=== PATIENT | male | born 1985 | race African-American/Black ===

== ENCOUNTER 2022-06-14 13:24 | Inpatient (IN) ==
[2022-06-14] MEDS ORDERED: ONDANSETRON INJ 2 MG/ML 2 ML VIAL IV STA (13:44)
[2022-06-14] MEDS ORDERED: SODIUM CHLORIDE 0.9% 1000ML 2,000 ML IV SCH (13:45)
--- NOTE | 2022-06-14 13:50 | Emergency Department Note ---
History of Present Illness General Chief complaint: Illness Stated complaint: NI/OUT, DEHYDRATED, Time Seen by Provider: 06/14/22 13:35 History of Present Illness 37-year-old male presents to the ED with a chief complaint of altered mental status. The patient was brought in by a friend. 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 The patient has been lethargic for the past week, just laying around. He is normally talkative and active. No known past medical history. Does not see a doctor regularly. The patient does report some recent vomiting and possibly diarrhea. He is a difficult historian as he is altered and only responds to basic questions with simple answers. The friend reports that he takes no chronic medications. Home Medications Medication Instructions Recorded Confirmed Type No Known Home Medications 06/14/22 06/14/22 History Allergies Allergy/AdvReac Type Severity Reaction Status Date / Time No Known Allergies Allergy Unverified 02/20/15 13:20 Past Med/Surg History Medical History (Updated 06/14/22 @ 15:18 by Mindy Coleman PA-C) Medical history unknown Surgical History (Updated 06/14/22 @ 15:19 by Mindy Coleman PA-C) Surgical history unknown Family History Other Family history unobtainable due to patient's condition Social History Smoking Status: Unknown if ever smoked Preferred Language: Cymraes Review of Systems A total of 10 systems reviewed and were otherwise negative Physical Exam Vital Signs Vital Signs - 24 hr 06/14/22 13:26 06/14/22 13:53 06/14/22 14:06 Temperature 36.5 C Temperature Source Temporal Artery Scan Pulse Rate 123 H 120 H Pulse Rate [Radial] 120 H Pulse Rate from SpO2 Sensor Pulse Rhythm Regular Pulse Rhythm [Radial] Regular Respiratory Rate 20 28 H 20 Respiratory Effort / Characteristics Non-Labored Spontaneous Non-Labored Respiratory Depth Normal Normal Respiratory Pattern Regular Blood Pressure 133/91 Blood Pressure Mean 105 Blood Pressure Position Sitting Pulse Oximetry 99 98 98 Oxygen Delivery Method Room Air Room Air Room Air Sepsis Recent Fever Within 48 Hours No Sepsis New/Unexplained Change in Mental Status No Sepsis Action Taken by Nursing No Action Required 06/14/22 13:38 06/14/22 13:40 06/14/22 13:50 Temperature Temperature Source Pulse Rate 119 H 120 H 120 H Pulse Rate [Radial] Pulse Rate from SpO2 Sensor Pulse Rhythm Pulse Rhythm [Radial] Respiratory Rate 21 15 16 Respiratory Effort / Characteristics Respiratory Depth Respiratory Pattern Blood Pressure Blood Pressure Mean Blood Pressure Position Pulse Oximetry Oxygen Delivery Method Sepsis Recent Fever Within 48 Hours Sepsis New/Unexplained Change in Mental Status Sepsis Action Taken by Nursing 06/14/22 14:00 06/14/22 14:10 06/14/22 14:20 Temperature Temperature Source Pulse Rate 123 H 121 H 122 H Pulse Rate [Radial] Pulse Rate from SpO2 Sensor Pulse Rhythm Pulse Rhythm [Radial] Respiratory Rate 24 22 19 Respiratory Effort / Characteristics Respiratory Depth Respiratory Pattern Blood Pressure Blood Pressure Mean Blood Pressure Position Pulse Oximetry Oxygen Delivery Method Sepsis Recent Fever Within 48 Hours Sepsis New/Unexplained Change in Mental Status Sepsis Action Taken by Nursing 06/14/22 14:26 06/14/22 14:26 06/14/22 14:30 Temperature Temperature Source Pulse Rate 124 H 124 H Pulse Rate [Radial] Pulse Rate from SpO2 Sensor 121 H Pulse Rhythm Pulse Rhythm [Radial] Respiratory Rate 23 18 Respiratory Effort / Characteristics Respiratory Depth Respiratory Pattern Blood Pressure 166/104 H Blood Pressure Mean 124 Blood Pressure Position Pulse Oximetry 90 Oxygen Delivery Method Sepsis Recent Fever Within 48 Hours Sepsis New/Unexplained Change in Mental Status Sepsis Action Taken by Nursing 06/14/22 14:40 06/14/22 14:50 06/14/22 15:00 Temperature Temperature Source Pulse Rate 123 H 123 H 121 H Pulse Rate [Radial] Pulse Rate from SpO2 Sensor 123 H 123 H 124 H Pulse Rhythm Pulse Rhythm [Radial] Respiratory Rate 15 15 17 Respiratory Effort / Characteristics Respiratory Depth Respiratory Pattern Blood Pressure Blood Pressure Mean Blood Pressure Position Pulse Oximetry 98 99 95 Oxygen Delivery Method Sepsis Recent Fever Within 48 Hours Sepsis New/Unexplained Change in Mental Status Sepsis Action Taken by Nursing 06/14/22 15:01 06/14/22 15:01 06/14/22 15:09 Temperature 36.8 C Temperature Source Axillary Pulse Rate 122 H Pulse Rate [Radial] Pulse Rate from SpO2 Sensor Pulse Rhythm Pulse Rhythm [Radial] Respiratory Rate 20 Respiratory Effort / Characteristics Respiratory Depth Respiratory Pattern Blood Pressure 130/104 H Blood Pressure Mean 112 Blood Pressure Position Pulse Oximetry Oxygen Delivery Method Sepsis Recent Fever Within 48 Hours Sepsis New/Unexplained Change in Mental Status Sepsis Action Taken by Nursing CONSTITUTIONAL/VITAL SIGNS: Reviewed / noted above. GENERAL: Patient is lethargic. Responds appropriately to basic questions but only with basic answers. Smell of ketones about the patient. INTEGUMENTARY: Warm, dry, and [place]. HEAD: Normocephalic. EYES: without scleral icterus or trauma. ENT/OROPHARYNX: clear and moist. LYMPHADENOPATHY/NECK: Is supple without lymphadenopathy or meningismus. RESPIRATORY: Clear to auscultation bilaterally. No increased work of breathing. CARDIOVASCULAR: Tachycardic rate and regular rhythm. GI/ABDOMEN: Soft and nontender. No organomegaly or pulsatile mass. EXTREMITIES: Warm and well perfused. NEUROLOGICAL: The patient is lethargic but answers basic questions appropriately with basic answers. No obvious focal deficits. Follows basic commands and moves all 4 extremities. MUSCULOSKELETAL: Normally developed with good muscle tone. TRIAGE NURSING DOCUMENTATION REVIEWED. Procedures ABG Interpretation ABG Interpretation 1: ABG Results: 7.2 Interpretation: metabolic acidosis Course Administered Medications Sodium Chloride (Nss 1000ml) 2,000 mls @ 999 mls/hr IV .Q2H1M EDWIN Stop: 06/14/22 15:45 Last Admin: 06/14/22 14:04 Dose: 999 mls/hr Documented By: EMY Parenteral Electrolytes (Normosol-R) 1,000 mls @ 500 mls/hr IV .Q2H EDWIN Stop: 07/14/22 14:14 Last Admin: 06/14/22 15:00 Dose: 500 mls/hr Documented By: EMY Insulin Human Regular 250 (units/ Sodium Chloride) 250 mls @ 10 mls/hr IV .Q24H [facility]; Protocol Stop: 07/14/22 14:14 Last Admin: 06/14/22 14:31 Dose: 10 units/hr, 10 mls/hr Documented By: EMY Co-signed By: PIERCE Discontinued Medications Insulin Human Regular (Novolin-R Bolus From Bag) 10 units IV ONE ONE Stop: 06/14/22 14:16 Last Admin: 06/14/22 14:31 Dose: 10 units Documented By: EMY Co-signed By: PIERCE Miscellaneous (Hhs Goal Range 250-350 Mg/Dl) 1 each N/A ONE ONE Stop: 06/14/22 13:57 Last Admin: 06/14/22 15:06 Dose: Not Given Documented By: CAROLYN Ondansetron HCl (Ondansetron Inj 2 Mg/Ml 2 Ml Vial) 4 mg IV NOW STA Stop: 06/14/22 13:45 Last Admin: 06/14/22 14:04 Dose: 4 mg Documented By: EMY Critical Care Time Critical Care Time: Yes Total Critical Care Time: 30 I have personally spent 30 minutes of critical care time in the direct management of this patient. This includes bedside care, interpretation of diagnostic studies, and testing, discussion with consultants, patient, and family members, and other required patient management activities. This 30 minutes is in excess of all separately billable procedures. Medical Decision Making Differential Diagnosis Differential includes acute coronary syndrome, myocardial infarction, CVA, TIA, anemia, infection, pneumonia, UTI, pyelonephritis, poor nutrition, dehydration, electrolyte disturbance,hypoglycemia, DKA, hyperglycemia. Medical Records Attestation: I reviewed the patient's medical records. Home Medications Current Medication List: was personally reviewed by me Laboratory Data Attestation: I reviewed the patient's lab results. Result diagrams: 06/14/22 13:48 06/14/22 13:48 Lab Results 06/14/22 06/14/22 06/14/22 Range/Units 13:38 13:48 13:48 WBC 12.73 H (4.8-10.8) K/ul RBC 6.99 H (4.63-6.08) M/uL Hgb 15.6 (14.0-18.0) g/dl POC Hgb (14.0-18.0) g/dl Hct 51.8 H (40.1-51.0) % POC Hct (42-52) % MCV 74.1 L (80.0-100.0) fL MCH 22.3 L (25.0-34.0) pg MCHC 30.1 L (32.0-36.0) g/dL RDW Std Deviation 35.6 L (36.4-46.3) fL RDW Coeff of Angelo 15.2 H (11.5-14.5) % Plt Count 470 H (130-400) K/uL MPV 12.5 H (9.4-12.4) fL Immature Gran % (Auto) 0.6 % Neut % (Auto) 79.1 % Lymph % (Auto) 8.8 % [facility] % (Auto) 11.0 % Eos % (Auto) 0.0 % Baso % (Auto) 0.5 % Neut # (Auto) 10.07 H (1.4-6.5) K/uL Lymph # (Auto) 1.12 L (1.2-3.4) K/uL [facility] # (Auto) 1.40 H (0.24-0.82) K/uL Eos # (Auto) 0.00 (0-0.50) K/uL Baso # (Auto) 0.06 (0-0.2) K/uL Immature Gran # (Auto) 0.08 H (0.00-0.02) K/uL ABG pH (7.35-7.45) ABG pCO2 (35-46) mmHg ABG pO2 (80-95) mmHg ABG HCO3 (19-24) mmol/L ABG O2 Saturation (90-95) % ABG Base Excess (-9-1.8) mEq/L Edvin Test (Pos) VBG pH (7.36-7.41) VBG pCO2 (38-50) mmHg VBG pO2 mmHg VBG HCO3 mmol/L VBG O2 Saturation % VBG Base Excess mEq/L Oxygen Given POC Sodium (135-144) mmol/L Sodium 137 (136-145) mmol/L POC Potassium (3.3-5.0) mmol/L Potassium 6.7 H* (3.5-5.1) mmol/L POC Chloride (101-112) mmol/L Chloride 90 L (98-107) mmol/L Carbon Dioxide 13 L (21-32) mmol/L POC Total CO2 (24-31) mmol/L Anion Gap 34 H (3-11) POC Anion Gap (16-25) mmol/L POC BUN (7-18) mg/dl BUN 48 H (6-23) mg/dl Creatinine 2.92 H (0.6-1.4) mg/dl POC Creatinine (0.6-1.3) mg/dl Est Cr Clr Drug Dosing 53.9 ml/min Est GFR ( Amer) 30.8 ml/min Est GFR (Non-Af Amer) 26.6 ml/min BUN/Creatinine Ratio 16.4 (10-20) Glucose 883 H* (70-99(Fasting)) mg/dl POC Glucose > 600 H* (70-99) mg/dl POC Glucose (other) (70-99) mg/dl Lactate (0.4-2.0) mmol/L Calcium 10.5 H (8.5-10.1) mg/dl POC Ioniz Calcium Linda (1.12-1.32) mmol/l Phosphorus (2.5-4.9) mg/dl Magnesium 3.4 H (1.7-2.4) mg/dl Total Bilirubin 0.5 (0.2-1.0) mg/dl AST 9 L (13-39) U/L ALT 18 (7-52) U/L Alkaline Phosphatase 76 (34-104) U/L Total Creatine Kinase 81 (30-223) U/L Troponin I High Sens 14.9 (0-20) pg/ml Total Protein 8.9 H (6.0-8.3) gm/dl Albumin 4.5 (3.4-5.0) gm/dl Globulin 4.4 H (2.5-4.0) gm/dl Albumin/Globulin Ratio 1.0 (0.9-2) TSH (0.300-4.500) uIu/ml SARS-CoV-2, RNA, NAAT (NEGATIVE) 06/14/22 06/14/22 06/14/22 Range/Units 13:48 13:48 13:48 WBC (4.8-10.8) K/ul RBC (4.63-6.08) M/uL Hgb (14.0-18.0) g/dl POC Hgb (14.0-18.0) g/dl Hct (40.1-51.0) % POC Hct (42-52) % MCV (80.0-100.0) fL MCH (25.0-34.0) pg MCHC (32.0-36.0) g/dL RDW Std Deviation (36.4-46.3) fL RDW Coeff of Angelo (11.5-14.5) % Plt Count (130-400) K/uL MPV (9.4-12.4) fL Immature Gran % (Auto) % Neut % (Auto) % Lymph % (Auto) % [facility] % (Auto) % Eos % (Auto) % Baso % (Auto) % Neut # (Auto) (1.4-6.5) K/uL Lymph # (Auto) (1.2-3.4) K/uL [facility] # (Auto) (0.24-0.82) K/uL Eos # (Auto) (0-0.50) K/uL Baso # (Auto) (0-0.2) K/uL Immature Gran # (Auto) (0.00-0.02) K/uL ABG pH (7.35-7.45) ABG pCO2 (35-46) mmHg ABG pO2 (80-95) mmHg ABG HCO3 (19-24) mmol/L ABG O2 Saturation (90-95) % ABG Base Excess (-9-1.8) mEq/L Edvin Test (Pos) VBG pH (7.36-7.41) VBG pCO2 (38-50) mmHg VBG pO2 mmHg VBG HCO3 mmol/L VBG O2 Saturation % VBG Base Excess mEq/L Oxygen Given POC Sodium (135-144) mmol/L Sodium (136-145) mmol/L POC Potassium (3.3-5.0) mmol/L Potassium (3.5-5.1) mmol/L POC Chloride (101-112) mmol/L Chloride (98-107) mmol/L Carbon Dioxide (21-32) mmol/L POC Total CO2 (24-31) mmol/L Anion Gap (3-11) POC Anion Gap (16-25) mmol/L POC BUN (7-18) mg/dl BUN (6-23) mg/dl Creatinine (0.6-1.4) mg/dl POC Creatinine (0.6-1.3) mg/dl Est Cr Clr Drug Dosing ml/min Est GFR ( Amer) ml/min Est GFR (Non-Af Amer) ml/min BUN/Creatinine Ratio (10-20) Glucose (70-99(Fasting)) mg/dl POC Glucose (70-99) mg/dl POC Glucose (other) (70-99) mg/dl Lactate 3.2 H* (0.4-2.0) mmol/L Calcium (8.5-10.1) mg/dl POC Ioniz Calcium Linda (1.12-1.32) mmol/l Phosphorus 7.4 H (2.5-4.9) mg/dl Magnesium (1.7-2.4) mg/dl Total Bilirubin (0.2-1.0) mg/dl AST (13-39) U/L ALT (7-52) U/L Alkaline Phosphatase (34-104) U/L Total Creatine Kinase (30-223) U/L Troponin I High Sens (0-20) pg/ml Total Protein (6.0-8.3) gm/dl Albumin (3.4-5.0) gm/dl Globulin (2.5-4.0) gm/dl Albumin/Globulin Ratio (0.9-2) TSH 1.191 (0.300-4.500) uIu/ml SARS-CoV-2, RNA, NAAT (NEGATIVE) 06/14/22 06/14/22 06/14/22 Range/Units 13:50 14:00 14:19 WBC (4.8-10.8) K/ul RBC (4.63-6.08) M/uL Hgb (14.0-18.0) g/dl POC Hgb 18.4 H (14.0-18.0) g/dl Hct (40.1-51.0) % POC Hct 54 H (42-52) % MCV (80.0-100.0) fL MCH (25.0-34.0) pg MCHC (32.0-36.0) g/dL RDW Std Deviation (36.4-46.3) fL RDW Coeff of Angelo (11.5-14.5) % Plt Count (130-400) K/uL MPV (9.4-12.4) fL Immature Gran % (Auto) % Neut % (Auto) % Lymph % (Auto) % [facility] % (Auto) % Eos % (Auto) % Baso % (Auto) % Neut # (Auto) (1.4-6.5) K/uL Lymph # (Auto) (1.2-3.4) K/uL [facility] # (Auto) (0.24-0.82) K/uL Eos # (Auto) (0-0.50) K/uL Baso # (Auto) (0-0.2) K/uL Immature Gran # (Auto) (0.00-0.02) K/uL ABG pH (7.35-7.45) ABG pCO2 (35-46) mmHg ABG pO2 (80-95) mmHg ABG HCO3 (19-24) mmol/L ABG O2 Saturation (90-95) % ABG Base Excess (-9-1.8) mEq/L Edvin Test (Pos) VBG pH 7.23 L (7.36-7.41) VBG pCO2 33 L (38-50) mmHg VBG pO2 42 mmHg VBG HCO3 14 mmol/L VBG O2 Saturation 66.9 % VBG Base Excess -12.6 mEq/L Oxygen Given POC Sodium 135 (135-144) mmol/L Sodium (136-145) mmol/L POC Potassium 6.7 H* (3.3-5.0) mmol/L Potassium (3.5-5.1) mmol/L POC Chloride 102 (101-112) mmol/L Chloride (98-107) mmol/L Carbon Dioxide (21-32) mmol/L POC Total CO2 15 L (24-31) mmol/L Anion Gap (3-11) POC Anion Gap 26.0 H (16-25) mmol/L POC BUN 48 H (7-18) mg/dl BUN (6-23) mg/dl Creatinine (0.6-1.4) mg/dl POC Creatinine 2.6 H (0.6-1.3) mg/dl Est Cr Clr Drug Dosing ml/min Est GFR ( Amer) ml/min Est GFR (Non-Af Amer) ml/min BUN/Creatinine Ratio (10-20) Glucose (70-99(Fasting)) mg/dl POC Glucose (70-99) mg/dl POC Glucose (other) > 700 H* (70-99) mg/dl Lactate (0.4-2.0) mmol/L Calcium (8.5-10.1) mg/dl POC Ioniz Calcium Linda 1.20 (1.12-1.32) mmol/l Phosphorus (2.5-4.9) mg/dl Magnesium (1.7-2.4) mg/dl Total Bilirubin (0.2-1.0) mg/dl AST (13-39) U/L ALT (7-52) U/L Alkaline Phosphatase (34-104) U/L Total Creatine Kinase (30-223) U/L Troponin I High Sens (0-20) pg/ml Total Protein (6.0-8.3) gm/dl Albumin (3.4-5.0) gm/dl Globulin (2.5-4.0) gm/dl Albumin/Globulin Ratio (0.9-2) TSH (0.300-4.500) uIu/ml SARS-CoV-2, RNA, NAAT NEGATIVE (NEGATIVE) 06/14/22 Range/Units 14:27 WBC (4.8-10.8) K/ul RBC (4.63-6.08) M/uL Hgb (14.0-18.0) g/dl POC Hgb (14.0-18.0) g/dl Hct (40.1-51.0) % POC Hct (42-52) % MCV (80.0-100.0) fL MCH (25.0-34.0) pg MCHC (32.0-36.0) g/dL RDW Std Deviation (36.4-46.3) fL RDW Coeff of Angelo (11.5-14.5) % Plt Count (130-400) K/uL MPV (9.4-12.4) fL Immature Gran % (Auto) % Neut % (Auto) % Lymph % (Auto) % [facility] [place] % (Auto) % Eos % (Auto) % Baso % (Auto) % Neut # (Auto) (1.4-6.5) K/uL Lymph # (Auto) (1.2-3.4) K/uL [facility] [place] # (Auto) (0.24-0.82) K/uL Eos # (Auto) (0-0.50) K/uL Baso # (Auto) (0-0.2) K/uL Immature Gran # (Auto) (0.00-0.02) K/uL ABG pH 7.25 L (7.35-7.45) ABG pCO2 23 L (35-46) mmHg ABG pO2 110 H (80-95) mmHg ABG HCO3 10 L (19-24) mmol/L ABG O2 Saturation 99.4 H (90-95) % ABG Base Excess -15.0 L (-9-1.8) mEq/L Edvin Test Pos (Pos) VBG pH (7.36-7.41) VBG pCO2 (38-50) mmHg VBG pO2 mmHg VBG HCO3 mmol/L VBG O2 Saturation % VBG Base Excess mEq/L Oxygen Given ROOM AIR POC Sodium (135-144) mmol/L Sodium (136-145) mmol/L POC Potassium (3.3-5.0) mmol/L Potassium (3.5-5.1) mmol/L POC Chloride (101-112) mmol/L Chloride (98-107) mmol/L Carbon Dioxide (21-32) mmol/L POC Total CO2 (24-31) mmol/L Anion Gap (3-11) POC Anion Gap (16-25) mmol/L POC BUN (7-18) mg/dl BUN (6-23) mg/dl Creatinine (0.6-1.4) mg/dl POC Creatinine (0.6-1.3) mg/dl Est Cr Clr Drug Dosing ml/min Est GFR ( Amer) ml/min Est GFR (Non-Af Amer) ml/min BUN/Creatinine Ratio (10-20) Glucose (70-99(Fasting)) mg/dl POC Glucose (70-99) mg/dl POC Glucose (other) (70-99) mg/dl Lactate (0.4-2.0) mmol/L Calcium (8.5-10.1) mg/dl POC Ioniz Calcium Linda (1.12-1.32) mmol/l Phosphorus (2.5-4.9) mg/dl Magnesium (1.7-2.4) mg/dl Total Bilirubin (0.2-1.0) mg/dl AST (13-39) U/L ALT (7-52) U/L Alkaline Phosphatase (34-104) U/L Total Creatine Kinase (30-223) U/L Troponin I High Sens (0-20) pg/ml Total Protein (6.0-8.3) gm/dl Albumin (3.4-5.0) gm/dl Globulin (2.5-4.0) gm/dl Albumin/Globulin Ratio (0.9-2) TSH (0.300-4.500) uIu/ml SARS-CoV-2, RNA, NAAT (NEGATIVE) Imaging Data Radiologist's Impression: Chest X-Ray 06/14/22 13:44 XR chest 1V portable CLINICAL HISTORY: weakness COMPARISON STUDY: No previous studies for comparison. FINDINGS: Exam is compromised given portable technique with suboptimal penetration. Lung volumes are normal. Lungs are clear. There is no pneumothorax or pleural effusion. Cardiac size is normal. Mediastinal contours are normal. There is no evidence for pulmonary edema. IMPRESSION: No acute cardiopulmonary findings. ACT 112: Negative or not required by law. Electronically signed by: Martín Duncan M.D. 06/14/2022 2:08 PM ECG Data Attestation: I personally reviewed and interpreted this ECG as follows: Additional Comments: Twelve-lead EKG: Per my interpretation shows a sinus tach at a rate of 120. No ST elevation. No PVCs. Normal QTC. T wave inversions inferiorly. MDM Narrative 37-year-old male presents with an alteration in mental status primary with lethargy. No known medical history. Tachycardic on initial evaluation. Blood sugar reads high. Smell of ketones about the patient. He has been this way for about a week, according to the friend who presents with the patient. Twelve- lead EKG shows a sinus tach. White blood cell count is 12.7. Potassium is 6.7. BUN is 48. Creatinine is 2.92. Anion gap is 34. Glucose is 883. Lactic acid is 3.2. Magnesium is 3.4. Troponin was negative. TSH is normal. COVID test is negative. ABG shows a metabolic acidosis with attempted respiratory compensation. A chest x-ray was negative for acute disease. The patient was given IV normal saline boluses and started on a normal Mary drip at 500 cc/h. The patient was also started on insulin drip with insulin bolus. He was told the results of the test. He is a little more alert on reassessment. The patient will be seen by the hospitalist for further evaluation and care. Impression & Plan Coma, hyperosmolar nonketotic, Metabolic acidosis, Acute dehydration, Acute kidney injury, Acute hyperglycemia, New onset type 2 diabetes mellitus Discharge Plan Visit Data Chief Complaint: Illness Stated Complaint: NI/OUT, DEHYDRATED, ED Provider: Ilir Betancur Discharge Problem: Coma, hyperosmolar nonketotic, Metabolic acidosis, Acute dehydration, Acute kidney injury, Acute hyperglycemia, New onset type 2 diabetes mellitus Patient Disposition: Being Evaluated by Hospitalist Forms Stand Alone Forms: My [facility] Prescriptions Prescriptions: No Action No Known Home Medications Referrals Referrals: PCP,NO [Primary Care Provider] -
[2022-06-14] MEDS ORDERED: HHS GOAL RANGE 250-350 mg/dl ONE ×2 (13:56→18:32)
[2022-06-14 14:00] LABS: Basophils # (auto) 0.06 K/uL (0-0.2); Basophils % (auto) 0.5 %; Hematocrit (blood only) 51.8 % (40.1-51.0); Hemoglobin 15.6 g/dl (14.0-18.0); Immature Granulocytes # (auto) 0.08 K/uL (0.00-0.02); Immature Granulocytes % (auto) 0.6 %; Lymphocytes # (auto) 1.12 K/uL (1.2-3.4); Lymphocytes % (auto) 8.8 %; Mean Corpuscular Hemoglobin 22.3 pg (25.0-34.0); Mean Corpuscular Hgb Conc 30.1 g/dL (32.0-36.0); Mean Corpuscular Volume 74.1 fL (80.0-100.0); Mean Platelet Volume 12.5 fL (9.4-12.4); Neutrophils # (auto) 10.07 K/uL (1.4-6.5); Neutrophils % (auto) 79.1 %; Platelet Count 470 K/uL (130-400); RDW Coefficient of Variation 15.2 % (11.5-14.5); RDW Standard Deviation 35.6 fL (36.4-46.3); Red Blood Count 6.99 M/uL (4.63-6.08); White Blood Count 12.73 K/ul (4.8-10.8)
[2022-06-14] MEDS ORDERED: STAT INSULIN DRIP STA (14:01)
[2022-06-14 14:03] LABS: iSTAT Blood Urea Nitrogen 48 mg/dl (7-18); iSTAT Carbon Dioxide 15 mmol/L (24-31); iSTAT Chloride 102 mmol/L (101-112); iSTAT Creatinine 2.6 mg/dl (0.6-1.3); iSTAT Glucose > 700 mg/dl (70-99); iSTAT Hematocrit 54 % (42-52); iSTAT Hemoglobin 18.4 g/dl (14.0-18.0); iSTAT Potassium 6.7 mmol/L (3.3-5.0); iSTAT Sodium 135 mmol/L (135-144)
--- NOTE | 2022-06-14 14:09 | XRay Report ---
XR chest 1V portable CLINICAL HISTORY: weakness COMPARISON STUDY: No previous studies for comparison. FINDINGS: Exam is compromised given portable technique with suboptimal penetration. Lung volumes are normal. Lungs are clear. There is no pneumothorax or pleural effusion. Cardiac size is normal. Medias tinal contours are normal. There is no evidence for pulmonary edema. IMPRESSION: No acute cardiopulmonary findings. ACT 112: Negative or not required by law. Electronically signed by: Martín Duncan M.D. 06/14/2022 2:08 PM
[2022-06-14 14:13] LABS: Base Excess VBG -12.6 mEq/L; HCO3 VBG 14 mmol/L; Oxygen Saturation VBG 66.9 %; PCO2 VBG 33 mmHg (38-50); PO2 VBG 42 mmHg; pH VBG 7.23 (7.36-7.41)
[2022-06-14] MEDS ORDERED: NovoLIN-R BOLUS FROM BAG IV ONE (14:15)
[2022-06-14] MEDS: INSULIN REGULAR 250 UNITS in SODIUM CHLORIDE 0.9% 247.5 ML IV SCH (14:31)
[2022-06-14 14:33] LABS: Albumin Level 4.5 gm/dl (3.4-5.0); BUN Creatinine Ratio 16.4 (10-20); Bilirubin,Total 0.5 mg/dl (0.2-1.0); Calcium 10.5 mg/dl (8.5-10.1); Creatinine Clr Calc Pharmacy 53.9 ml/min; Est GFR (African American) 30.8 ml/min; Est GFR (Non-African American) 26.6 ml/min; Globulin 4.4 gm/dl (2.5-4.0); Magnesium 3.4 mg/dl (1.7-2.4); Potassium 6.7 mmol/L (3.5-5.1); Total Protein 8.9 gm/dl (6.0-8.3); Troponin I High Sensitivity 14.9 pg/ml (0-20)
[2022-06-14 14:42] LABS: HCO3 ABG 10 mmol/L (19-24); Oxygen Saturation ABG 99.4 % (90-95); PCO2 ABG 23 mmHg (35-46); PO2 ABG 110 mmHg (80-95); pH ABG 7.25 (7.35-7.45)
[2022-06-14 14:43] LABS: Allen Test Pos (Pos)
[2022-06-14] MEDS: NORMOSOL-R 1,000 ML IV SCH ×4 (15:00→20:36)
--- NOTE | 2022-06-14 15:04 | History & Physical Report ---
Date of Service June 14, 2022 Assessment & Plan (1) Hyperosmolar hyperglycemic state (HHS): Plan: - Patient arrived to lethargic, been vomiting and had diarrhea the past week - Presenting BGM >700, was 883 on BMP. - Potassium 6.7, calcium 10.5, phosphorus 7.4, magnesium 3.4. - ABG 7.25 / 23 / 110 / 10, AG 34. - Lactate 3.2. - UA and UDS pending. - Patient received 2-hour NSS bolus in ED with Normosol now running 500 cc/hour. - Insulin drip with bolus 10 units started in ED - Repeat BMP, electrolytes, blood gas now. - DKA/HHS protocol: * Insulin gtt with BGM goal range 250-350 * Aggressive IVF, switch to IVF w/ D5 1/2 NS when glucose at goal range. Switch to 1/2 NS with KCl for K < 5.1 * Repeat BMP, electrolytes, vBG q4 hours for now. * BGM hourly. * Pharmacy consulted for transition to SQ insulin. (2) Acute kidney injury: Plan: - BUN 48, Cr 2.2, no established baseline. - Severely dehydrated 2/2/ DKA. - Aggressive hydration, Q4h BMPs. (3) Metabolic acidosis: (4) Acute dehydration: Plan - Admit to PCU. - SCDs for VTE ppx. - Full Code. History of Present Illness Chief Complaint: lethargy x 1 week Primary Care Provider: NO PCP Juan José Lockhart is a 37-year-old male with unknown past medical history who is presented to the ED today with his friend. Histotyr entirely obtained from friend and vehicle safety inspector as patient is too altered to contribute to history. Patient has been very lethargic for the past week and just lying around. He apparently has been vomiting this week and had some diarrhea. His friend notes that he has been eating significantly more in the last 2 weeks and has gained a large amount of weight in a short amount of time. He is normally healthy and active, does not have any known medical conditions, but does not see a doctor regularly. On presentation to ED, he is tachycardic with HR in 120s, otherwise all vital signs within normal limits and stable. ABG 7.25/23/110/10, AG 34. K 6.7, Ca 10.5, Phos 7.4, Mag 3.4 BUN 48, Cr 2.92 ED Course: 2L NSS bolus, Normosol @ 500cc/hr, insulin gtt with 10 units bolus insulin. Allergies Allergy/AdvReac Type Severity Reaction Status Date / Time No Known Allergies Allergy Unverified 02/20/15 13:20 Home Medications Medication Instructions Recorded Confirmed Type No Known Home Medications 06/14/22 06/14/22 History Past Med/Surg History Medical History (Updated 06/14/22 @ 16:04 by Mindy Coleman PA-C) Medical history unknown Surgical History (Updated 06/14/22 @ 15:19 by Mindy Coleman PA-C) Surgical history unknown Family History Other Family history unobtainable due to patient's condition Social History Smoking Status: Unknown if ever smoked Preferred Language: Croatian Review of Systems Review of Systems: Unobtainable due to cognitive status Physical Exam Physical Exam: General: Awake, alert but drowsy Head: Normocephalic, atraumatic ENT: PERRL, EOMI, no pharyngeal exudate, mucous membranes moist Chest: Clear to auscultation, on room air, no adventitious breath sounds Cardiac: Tachycardic rate, regular rhythm, no murmur, no JVD, normal peripheral pulses, good capillary refill Abdominal: Diffusely TTP throughout abdomen; no rebound, guarding; NABS x 4 quadrants, soft, nontender to palpation Extremities: Normal inspection, no peripheral edema or erythema, calfs nontender to palpation Psych: Normal mood and affect Neuro: AAO x 3, strength intact bilaterally and rated 5/5, no motor deficits, speech is clear, no peripheral sensory deficits Skin: no rash or erythema Results & Data Results & Data ([facility]) Vital Signs (Past 12 Hours) Vital Signs Temp Pulse Pulse Resp BP Pulse Ox O2 Del Method 06/14/22 14:06 120 H 20 98 Room Air 06/14/22 13:53 120 H 28 H 98 Room Air 06/14/22 13:26 36.5 C 123 H 20 133/91 99 Room Air Laboratory Results Abnormal lab results 06/14/22 06/14/22 06/14/22 Range/Units 13:38 13:48 13:48 WBC 12.73 H (4.8-10.8) K/ul RBC 6.99 H (4.63-6.08) M/uL POC Hgb (14.0-18.0) g/dl Hct 51.8 H (40.1-51.0) % POC Hct (42-52) % MCV 74.1 L (80.0-100.0) fL MCH 22.3 L (25.0-34.0) pg MCHC 30.1 L (32.0-36.0) g/dL RDW Std Deviation 35.6 L (36.4-46.3) fL RDW Coeff of Angelo 15.2 H (11.5-14.5) % Plt Count 470 H (130-400) K/uL MPV 12.5 H (9.4-12.4) fL Neut # (Auto) 10.07 H (1.4-6.5) K/uL Lymph # (Auto) 1.12 L (1.2-3.4) K/uL Harmon # (Auto) 1.40 H (0.24-0.82) K/uL Immature Gran # (Auto) 0.08 H (0.00-0.02) K/uL ABG pH (7.35-7.45) ABG pCO2 (35-46) mmHg ABG pO2 (80-95) mmHg ABG HCO3 (19-24) mmol/L ABG O2 Saturation (90-95) % ABG Base Excess (-9-1.8) mEq/L VBG pH (7.36-7.41) VBG pCO2 (38-50) mmHg POC Potassium (3.3-5.0) mmol/L Potassium 6.7 H* (3.5-5.1) mmol/L Chloride 90 L (98-107) mmol/L Carbon Dioxide 13 L (21-32) mmol/L POC Total CO2 (24-31) mmol/L Anion Gap 34 H (3-11) POC Anion Gap (16-25) mmol/L POC BUN (7-18) mg/dl BUN 48 H (6-23) mg/dl Creatinine 2.92 H (0.6-1.4) mg/dl POC Creatinine (0.6-1.3) mg/dl Glucose 883 H* (70-99(Fasting)) mg/dl POC Glucose > 600 H* (70-99) mg/dl POC Glucose (other) (70-99) mg/dl Lactate (0.4-2.0) mmol/L Calcium 10.5 H (8.5-10.1) mg/dl Phosphorus (2.5-4.9) mg/dl Magnesium 3.4 H (1.7-2.4) mg/dl AST 9 L (13-39) U/L Total Protein 8.9 H (6.0-8.3) gm/dl Globulin 4.4 H (2.5-4.0) gm/dl 06/14/22 06/14/22 06/14/22 Range/Units 13:48 13:48 13:50 WBC (4.8-10.8) K/ul RBC (4.63-6.08) M/uL POC Hgb 18.4 H (14.0-18.0) g/dl Hct (40.1-51.0) % POC Hct 54 H (42-52) % MCV (80.0-100.0) fL MCH (25.0-34.0) pg MCHC (32.0-36.0) g/dL RDW Std Deviation (36.4-46.3) fL RDW Coeff of Angelo (11.5-14.5) % Plt Count (130-400) K/uL MPV (9.4-12.4) fL Neut # (Auto) (1.4-6.5) K/uL Lymph # (Auto) (1.2-3.4) K/uL Harmon # (Auto) (0.24-0.82) K/uL Immature Gran # (Auto) (0.00-0.02) K/uL ABG pH (7.35-7.45) ABG pCO2 (35-46) mmHg ABG pO2 (80-95) mmHg ABG HCO3 (19-24) mmol/L ABG O2 Saturation (90-95) % ABG Base Excess (-9-1.8) mEq/L VBG pH (7.36-7.41) VBG pCO2 (38-50) mmHg POC Potassium 6.7 H* (3.3-5.0) mmol/L Potassium (3.5-5.1) mmol/L Chloride (98-107) mmol/L Carbon Dioxide (21-32) mmol/L POC Total CO2 15 L (24-31) mmol/L Anion Gap (3-11) POC Anion Gap 26.0 H (16-25) mmol/L POC BUN 48 H (7-18) mg/dl BUN (6-23) mg/dl Creatinine (0.6-1.4) mg/dl POC Creatinine 2.6 H (0.6-1.3) mg/dl Glucose (70-99(Fasting)) mg/dl POC Glucose (70-99) mg/dl POC Glucose (other) > 700 H* (70-99) mg/dl Lactate 3.2 H* (0.4-2.0) mmol/L Calcium (8.5-10.1) mg/dl Phosphorus 7.4 H (2.5-4.9) mg/dl Magnesium (1.7-2.4) mg/dl AST (13-39) U/L Total Protein (6.0-8.3) gm/dl Globulin (2.5-4.0) gm/dl 06/14/22 06/14/22 06/14/22 Range/Units 14:00 14:27 15:21 WBC (4.8-10.8) K/ul RBC (4.63-6.08) M/uL POC Hgb (14.0-18.0) g/dl Hct (40.1-51.0) % POC Hct (42-52) % MCV (80.0-100.0) fL MCH (25.0-34.0) pg MCHC (32.0-36.0) g/dL RDW Std Deviation (36.4-46.3) fL RDW Coeff of Angelo (11.5-14.5) % Plt Count (130-400) K/uL MPV (9.4-12.4) fL Neut # (Auto) (1.4-6.5) K/uL Lymph # (Auto) (1.2-3.4) K/uL Harmon # (Auto) (0.24-0.82) K/uL Immature Gran # (Auto) (0.00-0.02) K/uL ABG pH 7.25 L (7.35-7.45) ABG pCO2 23 L (35-46) mmHg ABG pO2 110 H (80-95) mmHg ABG HCO3 10 L (19-24) mmol/L ABG O2 Saturation 99.4 H (90-95) % ABG Base Excess -15.0 L (-9-1.8) mEq/L VBG pH 7.23 L (7.36-7.41) VBG pCO2 33 L (38-50) mmHg POC Potassium (3.3-5.0) mmol/L Potassium (3.5-5.1) mmol/L Chloride (98-107) mmol/L Carbon Dioxide (21-32) mmol/L POC Total CO2 (24-31) mmol/L Anion Gap (3-11) POC Anion Gap (16-25) mmol/L POC BUN (7-18) mg/dl BUN (6-23) mg/dl Creatinine (0.6-1.4) mg/dl POC Creatinine (0.6-1.3) mg/dl Glucose (70-99(Fasting)) mg/dl POC Glucose > 600 H* (70-99) mg/dl POC Glucose (other) (70-99) mg/dl Lactate (0.4-2.0) mmol/L Calcium (8.5-10.1) mg/dl Phosphorus (2.5-4.9) mg/dl Magnesium (1.7-2.4) mg/dl AST (13-39) U/L Total Protein (6.0-8.3) gm/dl Globulin (2.5-4.0) gm/dl Diagnostic Findings Chest X-Ray 06/14/22 13:44 XR chest 1V portable CLINICAL HISTORY: weakness COMPARISON STUDY: No previous studies for comparison. FINDINGS: Exam is compromised given portable technique with suboptimal penetration. Lung volumes are normal. Lungs are clear. There is no pneumothorax or pleural effusion. Cardiac size is normal. Mediastinal contours are normal. There is no evidence for pulmonary edema. IMPRESSION: No acute cardiopulmonary findings. ACT 112: Negative or not required by law. Electronically signed by: Martín Duncan M.D. 06/14/2022 2:08 PM ECG Additional Comments: Sinus tachycardia T wave abnormality, consider inferior ischemia Abnormal ECG No previous ECGs available. Code Status & VTE Plan Code Status Full Code Supervising Physician Co-Signing Physician Notes Patient seen and examined, chart reviewed, case discussed with Mindy Coleman PA-C and I agree with the assessment and plan as above except as otherwise noted Labs and images reviewed 37-year-old male who presented to the ER from the recommendation of his friend who was confused and altered. Patient with progressive lethargy and fatigue over the last week, and progressive vomiting/diarrhea in the last day. Per report from his friend had weight gain in the last 2 weeks with a heavy appetite right before becoming ill. At bedside assessment patient is extremely somnolent, awakens transiently to answer some questions before falling back asleep. Improving from obtunded, but still unreliable historian. Does not moan on abdominal palpation. Heart rate is tachycardic to palpation, is breathing normally on room air. DKA Presented with blood glucose greater than 700, hyperkalemia, lactic acidosis, and anion gap of 30. Creatinine 2.3 on recheck from 2.9, no baseline available presumed DEION.Received aggressive resuscitation with 3 L of crystalloid, additional 500 cc/h ordered. Agree with DKA/HHS protocol, insulin drip as noted. VBG every 4 hours. Was reviewed with ICU, patient improving with improving mentation and may be followed on PCU at this time. A1c pending. Will require DM therapy addition and at least metformin on discharge, new diagnosis of DM. Transition to subcu once BSG improved, gap closes, acidosis improves BMP every 4 hours PG Care Time/CCT Total # of Minutes Spent Total Time Spent with Patient: Total time spent is greater than 50% in coordination of care (as documented) at patient's floor/unit and/or counseling patient: Coding Level of Care Code 31513 Initial Inpt Care Lvl 3 Diagnoses Hyperosmolar hyperglycemic state (HHS) E11.00 Acute kidney injury N17.9 Metabolic acidosis E87.2 Acute dehydration E86.0
[2022-06-14] MEDS ORDERED: NORMOSOL-R 1,000 ML IV ONE (15:27)
[2022-06-14 16:07] LABS: Allen Test Pos (Pos); Base Excess ABG -13.5 mEq/L (-9-1.8); HCO3 ABG 11 mmol/L (19-24); Oxygen Saturation ABG 98.9 % (90-95); PCO2 ABG 23 mmHg (35-46); PO2 ABG 107 mmHg (80-95); pH ABG 7.29 (7.35-7.45)
[2022-06-14 16:27] LABS: BUN Creatinine Ratio 19.7 (10-20); Calcium 9.6 mg/dl (8.5-10.1); Creatinine Clr Calc Pharmacy 66.1 ml/min; Est GFR (African American) 39.4 ml/min; Magnesium 3.3 mg/dl (1.7-2.4); Potassium 5.3 mmol/L (3.5-5.1)
[2022-06-14 16:28] LABS: Appearance Urine Clear (Clear); Bacteria Urine Automated Negative (Negative); Bilirubin Urine Negative (Negative); Blood Urine Negative (Negative); Color Urine Yellow; Glucose Urine UA 3+ (Negative); Ketones Urine 3+ (Negative); Leukocyte Esterase Urine Negative (Negative); Nitrite Urine Negative (Negative); Protein Urine Trace (Negative); RBC Urine Automated 0-4 /hpf (0-4); Specific Gravity Urine 1.033 (1.000-1.030); Urobilinogen Urine Negative (Negative)
[2022-06-14 17:06] LABS: Amphetamines+Metham, Urine Neg (Neg); Barbiturates, Urine Neg (Neg); Benzodiazepine, Urine Neg (Neg); Cocaine, Urine Neg (Neg); MDMA (Ecstacy), Urine Neg (Neg); Methadone, Urine Neg (Neg); Opiate, Urine Neg (Neg); Phencyclidine, Urine Neg (Neg)
[2022-06-14] MEDS ORDERED: POLYETHYLENE (MIRALAX) 17 GM PACK PO PRN (18:32)
[2022-06-14] MEDS ORDERED: ONDANSETRON INJ 2 MG/ML 2 ML VIAL IV PRN (18:32)
[2022-06-14] MEDS ORDERED: PHARMACY GLYCEMIC MGMT CONSULT PRN (18:32)
[2022-06-14] MEDS ORDERED: GLUCOSE 40% GEL 15 GM TUBE PO PRN (19:30)
[2022-06-14] MEDS ORDERED: CARBOHYDRATES FOR HYPOGLYCEMIA PO PRN (19:30)
[2022-06-14] MEDS ORDERED: PENDING 1/2NSS+20mEq KCL IVF SCH (19:30)
[2022-06-14] MEDS ORDERED: GLUCOSE 10 TAB/TUBE PO PRN (19:30)
[2022-06-14] MEDS ORDERED: DEXTROSE 50% 50 ML SYRINGE IV PRN (19:30)
[2022-06-14] MEDS ORDERED: GLUCAGON FOR INJ 1 MG VIAL IM PRN (19:30)
[2022-06-14] MEDS ORDERED: PENDING D5 1/2NS+20mEq KCL IVF SCH (19:30)
[2022-06-14] MEDS: INSULIN ASPART PER UNIT SC SCH ×2 (19:55→21:10)
[2022-06-14 20:31] LABS: BUN Creatinine Ratio 24.7 (10-20); Calcium 6.7 mg/dl (8.5-10.1); Creatinine Clr Calc Pharmacy 107.1 ml/min; Est GFR (African American) 71.2 ml/min; Est GFR (Non-African American) 61.4 ml/min; Magnesium 3.2 mg/dl (1.7-2.4); Phosphorus 1.5 mg/dl (2.5-4.9); Potassium 4.4 mmol/L (3.5-5.1)
[2022-06-14] MEDS ORDERED: POTASSIUM PHOS 3 MMOL/1 ML INFUSION IV STA (20:33)
[2022-06-14] MEDS ORDERED: POTASSIUM PHOSPHATE 21 MMOL in SODIUM CHLORIDE 0.9% 500 ML IV ONE (21:00)
[2022-06-14] MEDS: D5W AND 1/2NSS + 20MEQ KCL 20 MEQ/1,000 ML BAG IV SCH (21:24)
[2022-06-15 00:26] LABS: BUN Creatinine Ratio 22.9 (10-20); Calcium 9.4 mg/dl (8.5-10.1); Creatinine Clr Calc Pharmacy 83.1 ml/min; Est GFR (African American) 52.5 ml/min; Est GFR (Non-African American) 45.3 ml/min; Magnesium 3.1 mg/dl (1.7-2.4); Phosphorus 2.2 mg/dl (2.5-4.9); Potassium 4.3 mmol/L (3.5-5.1)
[2022-06-15] MEDS: D5W AND 1/2NSS + 20MEQ KCL 20 MEQ/1,000 ML BAG IV SCH ×2 (02:22→08:15)
[2022-06-15 03:05] LABS: BUN Creatinine Ratio 24.7 (10-20); Calcium 9.2 mg/dl (8.5-10.1); Creatinine Clr Calc Pharmacy 91.9 ml/min; Est GFR (African American) 59.2 ml/min; Est GFR (Non-African American) 51.1 ml/min; Phosphorus 2.2 mg/dl (2.5-4.9); Potassium 4.3 mmol/L (3.5-5.1)
[2022-06-15] MEDS: INSULIN ASPART PER UNIT SC SCH ×4 (08:17→21:58)
[2022-06-15 08:22] LABS: Estimated Average Glucose 358 mg/dl; Hemoglobin A1C 14.1 % (4.5-5.6)
[2022-06-15 08:25] LABS: BUN Creatinine Ratio 20.7 (10-20); Calcium 9.3 mg/dl (8.5-10.1); Creatinine Clr Calc Pharmacy 78.9 ml/min; Est GFR (African American) 49.3 ml/min; Est GFR (Non-African American) 42.5 ml/min; Magnesium 2.9 mg/dl (1.7-2.4); Phosphorus 2.3 mg/dl (2.5-4.9); Potassium 4.4 mmol/L (3.5-5.1)
[2022-06-15 08:40] LABS: Hematocrit (blood only) 43.3 % (40.1-51.0); Hemoglobin 13.8 g/dl (14.0-18.0); Mean Corpuscular Hemoglobin 22.8 pg (25.0-34.0); Mean Corpuscular Hgb Conc 31.9 g/dL (32.0-36.0); Mean Corpuscular Volume 71.7 fL (80.0-100.0); RDW Coefficient of Variation 13.4 % (11.5-14.5); RDW Standard Deviation 33.4 fL (36.4-46.3); Red Blood Count 6.04 M/uL (4.63-6.08); White Blood Count 10.44 K/ul (4.8-10.8)
[2022-06-15 08:52] LABS: Basophils # (auto) 0.07 K/uL (0-0.2); Basophils % (auto) 0.7 %; Eosinophils # (auto) 0.03 K/uL (0-0.50); Eosinophils % (auto) 0.3 %; Immature Granulocytes # (auto) 0.03 K/uL (0.00-0.02); Immature Granulocytes % (auto) 0.3 %; Lymphocytes # (auto) 1.61 K/uL (1.2-3.4); Lymphocytes % (auto) 15.4 %; Mean Platelet Volume 13.4 fL (9.4-12.4); Monocytes # (auto) 1.78 K/uL (0.24-0.82); Neutrophils # (auto) 6.92 K/uL (1.4-6.5); Neutrophils % (auto) 66.3 %; Platelet Count 312 K/uL (130-400)
[2022-06-15] MEDS: POTASSIUM CHLORIDE 20 MEQ in DEXTROSE 5% 1,000 ML IV SCH ×3 (08:55→18:39)
--- NOTE | 2022-06-15 11:06 | Hospitalist Progress Note ---
Date of Service June 15, 2022 Assessment & Plan (1) DKA (diabetic ketoacidosis): Plan: - Patient arrived to lethargic, been vomiting and had diarrhea the past week - Presenting BGM >700, was 883 on BMP. - Potassium 6.7, calcium 10.5, phosphorus 7.4, magnesium 3.4. - ABG 7.25 / 23 / 110 / 10, AG 34 Patient with undiagnosed diabetes mellitus. No infective etiology found on UA, CXR. WBC normalized. Diagnosis appears more consistent with DKA rather than HHS given acidosis and urine ketones. Anion gap initially remaining elevated this morning 12-13 therefore given consistency with DKA and persistent anion gap will aim glucose 150-250 as discussed with pharmacy. Anion gap closed following change in goal glucose range. Continue to measure BMP, PO and Mg q4h overnight IV fluids switched to D5W with KCl 20 meq @ 200ml/hr due to hypernatremia and hyperchloremia. Renal (2) Acute kidney injury: Plan: - BUN 48, Cr 2.2, no established baseline. Cr improved to 1.87 however suspect some dilutional and may rebound somewhat when IV fluids discontinued. - Severely dehydrated 2/2/ DKA. - Aggressive hydration, Q4h BMPs. (3) Metabolic acidosis: Plan: 2/2 Ketosis as above (4) Acute dehydration: Plan VTE Prophylaxis - young age, low risk, early mobility recommended Diet - NPO except ice chips and sips Disposition - continued admission to PCU Admission and Anticipated Discharge Date Admission Date: June 14, 2022 Subjective Patient feels very tired this morning but otherwise reports he feels back to his usual self however generally not making much sense and closing his eyes repeatedly during our conversation. He is aware he is in hospital but not orientated to date including year. When asked directly he thinks he was previously diagnosed as diabetic but is unsure what he takes and reports no one prescribes him anything. He denies any pain or any other medical conditions. Discussed with his girlfriend Serena at bedside. No prior history of diabetes. Does not see PCP or take any medications. Review of Systems Review of Systems: All systems reviewed & are unremarkable except as noted in Subjective Physical Exam Constitutional: well developed and + morbidly obese; + not well nourished and no acute distress Eyes: PERRL, conjunctivae normal, anicteric sclerae ENMT: Mouth: + dry oral mucous membranes Neck: trachea midline, no thyromegaly Respiratory: normal respiratory effort, lungs clear to auscultation Cardiovascular: Rate/Rhythm: regular rhythm and + tachycardic Heart Sounds: no murmur Extremities: normal capillary refill and + pedal edema (trace b/l); no calf tenderness Gastrointestinal (Abdomen): normal bowel sounds, soft, nontender, no hepatosplenomegaly Musculoskeletal: no cyanosis or clubbing, extremities motor strength 5/5 Skin: no rashes, warm and dry Neurologic: moves all extremities, awake and + confused; no focal motor deficits Psychiatric: Orientation: alert, oriented to person and oriented to place (hospital only); + not oriented to time Genitourinary: no CVA tenderness Results & Data Results & Data ([facility]) Vital Signs (Past 12 Hours) Vital Signs Temp Pulse Pulse Resp BP Pulse Ox O2 Del Method 06/15/22 04:40 36.8 C 118 H 19 135/105 H 100 Room Air 06/15/22 00:00 129 H 06/15/22 00:00 36.8 C 130 H 20 162/97 H 99 Room Air PG Care Time/CCT Total # of Minutes Spent Total Time Spent with Patient: Total time spent is greater than 50% in coordination of care (as documented) at patient's floor/unit and/or counseling patient: Coding Level of Care Code 58276 Subseq Hosp Care Lvl 3 Diagnoses DKA (diabetic ketoacidosis) E11.10 Acute kidney injury N17.9 Metabolic acidosis E87.2 Acute dehydration E86.0
[2022-06-15 11:32] LABS: BUN Creatinine Ratio 19.3 (10-20); Calcium 9.5 mg/dl (8.5-10.1); Creatinine Clr Calc Pharmacy 81.4 ml/min; Est GFR (African American) 51.1 ml/min; Est GFR (Non-African American) 44.1 ml/min; Magnesium 2.8 mg/dl (1.7-2.4); Phosphorus 1.9 mg/dl (2.5-4.9); Potassium 4.2 mmol/L (3.5-5.1)
--- NOTE | 2022-06-15 12:18 | Pharmacy Report ---
Pharmacy Glycemic Short Note 2 - Date of Service June 15, 2022 - Glycemic Short BSG Results (Last 24 hours): 06/14/22 06/14/22 06/14/22 13:38 13:48 13:50 Glucose 883 H* POC Glucose > 600 H* POC Glucose (other) > 700 H* 06/14/22 06/14/22 06/14/22 15:21 15:31 17:35 Glucose 665 H* POC Glucose > 600 H* 477 H* POC Glucose (other) 06/14/22 06/14/22 06/14/22 19:01 19:36 20:07 Glucose 303 H* POC Glucose 447 H* 490 H* POC Glucose (other) 06/14/22 06/14/22 06/14/22 21:06 22:41 23:39 Glucose POC Glucose 301 H* 331 H* 309 H* POC Glucose (other) 06/14/22 06/15/22 06/15/22 23:49 00:38 01:37 Glucose 300 H POC Glucose 353 H* 330 H* POC Glucose (other) 06/15/22 06/15/22 06/15/22 02:24 02:36 03:40 Glucose 294 H POC Glucose 272 H 292 H POC Glucose (other) 06/15/22 06/15/22 06/15/22 04:33 05:44 06:40 Glucose 321 H* POC Glucose 333 H* 311 H* POC Glucose (other) 06/15/22 06/15/22 06/15/22 06:43 08:13 09:06 Glucose POC Glucose 292 H 296 H 348 H* POC Glucose (other) 06/15/22 06/15/22 06/15/22 09:07 10:03 10:04 Glucose POC Glucose 363 H* 316 H* 312 H* POC Glucose (other) 06/15/22 06/15/22 06/15/22 10:46 11:00 11:01 Glucose 343 H* POC Glucose 303 H* 315 H* POC Glucose (other) OUTPATIENT ANTIDIABETIC REGIMEN: * N/A * A1c 14.1% 06/14/22 ASSESSMENT: * Patient is a 37 yo male with unknown past medical history, A1c of 14.1%, no known home medication * Presented with altered mental status d/t HHS, admission BSG 883, current corrected sodium ~152, calculated serum osmol ~328, on D5+20 meq of Kcl @ 200 ml/hr * Goal range 250-350 mg/dL, will maintain insulin infusion until mental status improves/hyperosmolarity improves PLAN FOR INPATIENT GLYCEMIC CONTROL: * Continue insulin infusion to maintain BSG 25-350 mg/dL until mentation improved.
[2022-06-15] MEDS: INSULIN REGULAR 250 UNITS in SODIUM CHLORIDE 0.9% 247.5 ML IV SCH ×2 (14:14→15:29)
[2022-06-15 16:05] LABS: BUN Creatinine Ratio 18.7 (10-20); Calcium 9.4 mg/dl (8.5-10.1); Creatinine Clr Calc Pharmacy 83.6 ml/min; Est GFR (African American) 52.8 ml/min; Est GFR (Non-African American) 45.5 ml/min; Magnesium 2.7 mg/dl (1.7-2.4); Phosphorus 1.7 mg/dl (2.5-4.9)
--- NOTE | 2022-06-15 20:54 | Electrocardiogram Report ---
Test Reason : Blood Pressure : / mmHG Vent. Rate : 120 BPM Atrial Rate : 120 BPM P-R Int : 150 ms QRS Dur : 078 ms QT Int : 324 ms P-R-T Axes : 058 088 -07 degrees QTc Int : 457 ms Sinus tachycardia T wave abnormality, consider inferior ischemia Abnormal ECG No previous ECGs available Confirmed by Dakota Cavazos ([id number]) on 06/15/2022 8:53:51 PM Referred By: Confirmed By:Dakota Cavazos
[2022-06-15 20:58] LABS: BUN Creatinine Ratio 19.4 (10-20); Calcium 9.4 mg/dl (8.5-10.1); Creatinine Clr Calc Pharmacy 94.7 ml/min; Est GFR (African American) 61.4 ml/min; Potassium 3.6 mmol/L (3.5-5.1)
[2022-06-15] MEDS ORDERED: LANTUS PER UNIT CHARGE SQ ONE (21:00)
[2022-06-15 21:04] LABS: Magnesium 2.4 mg/dl (1.7-2.4); Phosphorus 1.4 mg/dl (2.5-4.9)
[2022-06-15] MEDS ORDERED: POTASSIUM PHOS 3 MMOL/1 ML INFUSION IV STA (21:07)
[2022-06-15] MEDS ORDERED: POTASSIUM PHOSPHATE 9 MMOL in SODIUM CHLORIDE 0.9% 250 ML IV ONE (21:30)
[2022-06-15] MEDS ORDERED: D5W AND 1/2NSS + 20MEQ KCL 20 MEQ/1,000 ML BAG IV SCH (22:00)
[2022-06-15] MEDS ORDERED: HEPARIN SOD (PORCINE) 1000 UNIT/ML IV ONE (22:29)
[2022-06-15] MEDS: POTASSIUM CHLORIDE 40 MEQ in D5W AND 1/2NSS 1,000 ML IV SCH (23:42)
[2022-06-16 00:05] LABS: BUN Creatinine Ratio 18.9 (10-20); Calcium 9.5 mg/dl (8.5-10.1); Creatinine Clr Calc Pharmacy 98.3 ml/min; Est GFR (African American) 64.2 ml/min; Est GFR (Non-African American) 55.4 ml/min; Magnesium 2.3 mg/dl (1.7-2.4); Phosphorus 2.2 mg/dl (2.5-4.9); Potassium 3.4 mmol/L (3.5-5.1)
[2022-06-16] MEDS: POTASSIUM CHLORIDE / WTR 10 MEQ/100 ML PLCT IV SCH ×2 (02:22→03:25)
[2022-06-16 04:07] LABS: BUN Creatinine Ratio 18.8 (10-20); Calcium 10.3 mg/dl (8.5-10.1); Creatinine Clr Calc Pharmacy 104.9 ml/min; Est GFR (African American) 69.5 ml/min; Est GFR (Non-African American) 59.9 ml/min; Magnesium 2.1 mg/dl (1.7-2.4); Potassium 3.5 mmol/L (3.5-5.1)
[2022-06-16 04:19] LABS: Ferritin 198.7 ng/ml (8-388)
[2022-06-16 05:50] LABS: Basophils # (auto) 0.08 K/uL (0-0.2); Basophils % (auto) 0.8 %; Eosinophils # (auto) 0.17 K/uL (0-0.50); Eosinophils % (auto) 1.8 %; Hematocrit (blood only) 40.2 % (40.1-51.0); Hemoglobin 12.5 g/dl (14.0-18.0); Immature Granulocytes # (auto) 0.04 K/uL (0.00-0.02); Immature Granulocytes % (auto) 0.4 %; Lymphocytes # (auto) 2.26 K/uL (1.2-3.4); Lymphocytes % (auto) 23.6 %; Mean Corpuscular Hemoglobin 22.5 pg (25.0-34.0); Mean Corpuscular Hgb Conc 31.1 g/dL (32.0-36.0); Mean Corpuscular Volume 72.3 fL (80.0-100.0); Mean Platelet Volume 11.9 fL (9.4-12.4); Monocytes # (auto) 1.56 K/uL (0.24-0.82); Monocytes % (auto) 16.3 %; Neutrophils # (auto) 5.47 K/uL (1.4-6.5); Neutrophils % (auto) 57.1 %; Platelet Count 286 K/uL (130-400); RDW Standard Deviation 33.3 fL (36.4-46.3); Red Blood Count 5.56 M/uL (4.63-6.08); White Blood Count 9.58 K/ul (4.8-10.8)
[2022-06-16] MEDS: POTASSIUM CHLORIDE 40 MEQ in D5W AND 1/2NSS 1,000 ML IV SCH (06:47)
[2022-06-16] MEDS ORDERED: hydrALAZINE HCL 20 MG/ML VIAL IV PRN (07:46)
[2022-06-16] MEDS ORDERED: POTASSIUM CHLORIDE CRTAB 20 MEQ TABCR PO STA (07:52)
[2022-06-16] MEDS: INSULIN ASPART PER UNIT SC SCH ×5 (08:37→21:27)
--- NOTE | 2022-06-16 13:05 | Pharmacy Report ---
Pharmacy Glycemic Short Note 2 - Date of Service June 16, 2022 - Glycemic Short BSG Results (Last 24 hours): 06/15/22 06/15/22 06/15/22 13:14 13:14 14:12 Glucose POC Glucose 306 H* 320 H* 300 H 06/15/22 06/15/22 06/15/22 15:04 15:08 15:08 Glucose 336 H* POC Glucose 313 H* 322 H* 06/15/22 06/15/22 06/15/22 16:10 17:02 18:05 Glucose POC Glucose 296 H 284 H 299 H 06/15/22 06/15/22 06/15/22 19:12 20:15 20:15 Glucose 282 H POC Glucose 288 H 250 H 06/15/22 06/15/22 06/15/22 21:06 23:25 23:27 Glucose 195 H POC Glucose 237 H 175 H 06/15/22 06/16/22 06/16/22 23:50 01:05 02:16 Glucose POC Glucose 168 H 183 H 159 H 06/16/22 06/16/22 06/16/22 03:00 04:07 07:03 Glucose 153 H POC Glucose 133 H 152 H 06/16/22 06/16/22 06/16/22 08:19 09:40 11:59 Glucose POC Glucose 165 H 163 H 184 H OUTPATIENT ANTIDIABETIC REGIMEN: * N/A * A1c 14.1% 06/14/22 ASSESSMENT: 06/16: * BSGs within goal on insulin infusion, average rate ~ 10 unit/hr. Pt received 50 units of Lantus last evening (~wt/stress 3, 0.6unit/kg/day). Insulin infusion discontinued this AM after pt ate breakfast. Dextrose containing IVF also discontinued. * Novolog 12/02 initiated with breakfast and overnight checks added. Lantus 50 units again tonight and will reassess basal tomorrow. 06/15: * Patient is a 37 yo male with unknown past medical history, A1c of 14.1%, no known home medication * Presented with altered mental status d/t [facility], admission BSG 883, current corrected sodium ~152, calculated serum osmol ~328, on D5+20 meq of Kcl @ 200 ml/hr * Goal range 250-350 mg/dL, will maintain insulin infusion until mental status improves/hyperosmolarity improves PLAN FOR INPATIENT GLYCEMIC CONTROL: * Basal: * Lantus 50units HS * Bolus: * Novolog ACHS: correction 15mg/dL/unit (goal 110-140mg/dL), carb ratio= 5gm/unit
[2022-06-16 13:15] LABS: BUN Creatinine Ratio 14.3 (10-20); Calcium 9.7 mg/dl (8.5-10.1); Est GFR (African American) 57.2 ml/min; Est GFR (Non-African American) 49.4 ml/min; Potassium 3.7 mmol/L (3.5-5.1)
--- NOTE | 2022-06-16 15:05 | Hospitalist Progress Note ---
Date of Service June 16, 2022 Assessment & Plan (1) Hyperosmolar hyperglycemic state (HHS): Plan: - Patient arrived to lethargic, been vomiting and had diarrhea the past week Admission labs: - Presenting BGM >700, was 883 on BMP. - Potassium 6.7, calcium 10.5, phosphorus 7.4, magnesium 3.4. - ABG 7.25 / 23 / 110 / 10, AG 34 Patient with undiagnosed diabetes mellitus. No infective etiology found on UA, CXR. WBC normalized. Anion gap closed yesterday. Started on Lantus 50 units at bedtime last night. Will discontinue intravenous fluids as Cr down to 1.49 (expect some rebound as IVF stopped) to lower his glucose and therefore insulin levels. Can start on T2DM diet. (2) DKA (diabetic ketoacidosis): (3) Acute kidney injury: Plan: - BUN 48, Cr 2.2, no established baseline. Cr improved to 1.87 however suspect some dilutional and may rebound somewhat when IV fluids discontinued. - Severely dehydrated 2/2/ DKA. - Aggressive hydration, Q4h BMPs. (4) Metabolic acidosis: Plan: 2/2 Ketosis as above (5) Acute dehydration: (6) Metabolic encephalopathy: Plan: Resolved secondary to HHS as above. B1 level pending, B12 level 490, ammonia level within normal limits. Plan VTE Prophylaxis - young age, low risk, early mobility recommended Diet - T2DM Disposition - continued admission to PCU Admission and Anticipated Discharge Date Admission Date: June 14, 2022 Subjective Much improved today. Orientated to place, person and year. Appetite returned. No chest pain or abdominal pain. Review of Systems Review of Systems: All systems reviewed & are unremarkable except as noted in Subjective Physical Exam Constitutional: well developed and + morbidly obese; + not well nourished and no acute distress ENMT: Mouth: + dry oral mucous membranes Neck: trachea midline, no thyromegaly Respiratory: normal respiratory effort, lungs clear to auscultation Cardiovascular: Rate/Rhythm: regular rhythm and + tachycardic Heart Sounds: no murmur Extremities: normal capillary refill and + pedal edema (trace b/l); no calf tenderness Gastrointestinal (Abdomen): normal bowel sounds, soft, nontender, no hepatosplenomegaly Musculoskeletal: no cyanosis or clubbing, extremities motor strength 5/5 Skin: no rashes, warm and dry Neurologic: moves all extremities and awake; no focal motor deficits and not confused Psychiatric: Orientation: alert, oriented to person, oriented to place and oriented to time Results & Data Results & Data ([facility]) Vital Signs (Past 12 Hours) Vital Signs Temp Pulse Resp BP Pulse Ox O2 Del Method 06/16/22 08:00 36.7 C 98 H 18 123/95 97 Room Air 06/16/22 09:07 Room Air PG Care Time/CCT Total # of Minutes Spent Total Time Spent with Patient: Total time spent is greater than 50% in coordination of care (as documented) at patient's floor/unit and/or counseling patient: Coding Level of Care Code 45399 Subseq Hosp Care Lvl 3 Diagnoses Hyperosmolar hyperglycemic state (HHS) E11.00 DKA (diabetic ketoacidosis) E11.10 Acute kidney injury N17.9 Metabolic acidosis E87.2 Acute dehydration E86.0 Metabolic encephalopathy G93.41
[2022-06-16 18:17] LABS: BUN Creatinine Ratio 15.1 (10-20); Calcium 9.6 mg/dl (8.5-10.1); Creatinine Clr Calc Pharmacy 90.5 ml/min; Est GFR (African American) 58.4 ml/min; Est GFR (Non-African American) 50.4 ml/min
[2022-06-16] MEDS ORDERED: LANTUS PER UNIT CHARGE SQ SCH (21:00)
[2022-06-17] MEDS: INSULIN ASPART PER UNIT SC SCH ×6 (00:06→22:44)
[2022-06-17 01:08] LABS: BUN Creatinine Ratio 17.4 (10-20); Calcium 6.5 mg/dl (8.5-10.1); Creatinine Clr Calc Pharmacy 142.9 ml/min; Est GFR (African American) 101.4 ml/min; Est GFR (Non-African American) 87.5 ml/min; Potassium 2.7 mmol/L (3.5-5.1)
[2022-06-17 06:03] LABS: Calcium 5.7 mg/dl (8.5-10.1); Est GFR (African American) 128.4 ml/min; Est GFR (Non-African American) 110.8 ml/min; Magnesium 1.1 mg/dl (1.7-2.4); Phosphorus 1.8 mg/dl (2.5-4.9); Potassium 2.5 mmol/L (3.5-5.1)
[2022-06-17] MEDS ORDERED: POTASSIUM PHOS 3 MMOL/1 ML INFUSION IV STA (06:11)
[2022-06-17] MEDS ORDERED: STAT IV STA (06:19)
[2022-06-17] MEDS ORDERED: POTASSIUM CHLORIDE CRTAB 20 MEQ TABCR PO STA ×2 (06:33→18:34)
[2022-06-17] MEDS ORDERED: POTASSIUM PHOSPHATE 30 MMOL in SODIUM CHLORIDE 0.9% 500 ML IV ONE (06:45)
[2022-06-17] MEDS ORDERED: SODIUM BICARBONATE 8.4% 150 MEQ in DEXTROSE 5% 1,000 ML IV SCH (06:45)
[2022-06-17] MEDS: MAGNESIUM SULFATE / D5W 1 GM/100 ML BAG IV SCH ×2 (06:58→10:16)
[2022-06-17 07:58] LABS: Albumin Level 2.1 gm/dl (3.4-5.0); Bilirubin,Total 0.3 mg/dl (0.2-1.0); Total Protein 3.9 gm/dl (6.0-8.3)
[2022-06-17] MEDS ORDERED: LANTUS PER UNIT CHARGE SQ SCH ×2 (09:00→21:00)
[2022-06-17 09:06] LABS: BUN Creatinine Ratio 14.9 (10-20); Calcium 9.4 mg/dl (8.5-10.1); Creatinine Clr Calc Pharmacy 101.1 ml/min; Est GFR (African American) 66.8 ml/min; Est GFR (Non-African American) 57.6 ml/min
[2022-06-17 09:33] LABS: Potassium 3.5 mmol/L (3.5-5.1)
--- NOTE | 2022-06-17 09:58 | Hospitalist Progress Note ---
Date of Service June 17, 2022 Assessment & Plan (1) Hyperosmolar hyperglycemic state (HHS): Plan: - Patient arrived to lethargic, been vomiting and had diarrhea the past week Admission labs: - Presenting BGM >700, was 883 on BMP. - Potassium 6.7, calcium 10.5, phosphorus 7.4, magnesium 3.4. - ABG 7.25 / 23 / 110 / 10, AG 34 Patient with undiagnosed diabetes mellitus. No infective etiology found on UA, CXR. WBC normalized. Anion gap closed. Continue basal bolus insulin. Glucose running higher today after d/c insulin drip. Erroneous labs this morning - unclear if taken incorrectly or lab error but hyperchloremia and metabolic acidosis corrected without intervention. No need for bicarb drip or phosphate replacement at this time. (2) DKA (diabetic ketoacidosis): (3) Acute kidney injury: Plan: - BUN 48, Cr 2.2, no established baseline. Cr improved 1.54 - may be his baseline. - Severely dehydrated 2/2/ HHS/DKA on admission. - Q6h BMPs (4) Metabolic acidosis: Plan: Now resolved. Hyperchloremia erroneous lab test. 2/2 Ketosis as above (5) Acute dehydration: (6) Metabolic encephalopathy: Plan: Resolved secondary to HHS as above. B1 level pending, B12 level 490, ammonia level within normal limits. (7) Left foot pain: Plan: Suspected plantar fasciitis. Stretches discussed with patient. Continue to monitor. Plan VTE Prophylaxis - young age, low risk, early mobility recommended Diet - T2DM Disposition - continued admission to PCU Admission and Anticipated Discharge Date Admission Date: June 14, 2022 Subjective Having significant left foot pain today. Mainly on the bottom of his foot. De clines any imaging. Previously had plantar fasciitis. Appetite coming back. Eating well. Concerned about insurance and affording his medications. Review of Systems Review of Systems: All systems reviewed & are unremarkable except as noted in Subjective Physical Exam Constitutional: well developed and + morbidly obese; + not well nourished and no acute distress Neck: trachea midline, no thyromegaly Respiratory: normal respiratory effort, lungs clear to auscultation Cardiovascular: Rate/Rhythm: regular rhythm and + tachycardic Heart Sounds: no murmur Extremities: normal capillary refill and + pedal edema (trace pitting b/l); no calf tenderness Gastrointestinal (Abdomen): normal bowel sounds, soft, nontender, no hepatosplenomegaly Musculoskeletal: no cyanosis or clubbing, extremities motor strength 5/5 No ankle tenderness. Swelling of feet but not pitting. Pain on bottom of both feet. Skin: no rashes, warm and dry Neurologic: moves all extremities and awake; no focal motor deficits and not confused Psychiatric: Orientation: alert, oriented to person, oriented to place and oriented to time Results & Data Results & Data ([facility]) Vital Signs (Past 12 Hours) Vital Signs Pulse Resp 06/16/22 22:00 107 H 21 PG Care Time/CCT Total # of Minutes Spent Total Time Spent with Patient: Total time spent is greater than 50% in coordination of care (as documented) at patient's floor/unit and/or counseling patient: Coding Level of Care Code 17626 Subseq Hosp Care Lvl 3 Diagnoses Hyperosmolar hyperglycemic state (HHS) E11.00 DKA (diabetic ketoacidosis) E11.10 Acute kidney injury N17.9 Metabolic acidosis E87.2 Acute dehydration E86.0 Metabolic encephalopathy G93.41 Left foot pain M79.672
[2022-06-17] MEDS ORDERED: INSULIN HUMAN REGULAR PER UNIT 10 UNITS in SYRINGE 9.9 ML IV ONE (15:10)
[2022-06-17] MEDS ORDERED: LANTUS PER UNIT CHARGE SQ ONE (16:45)
[2022-06-17 16:50] LABS: Albumin Globulin Ratio 1.2 (0.9-2); Albumin Level 3.5 gm/dl (3.4-5.0); BUN Creatinine Ratio 13.4 (10-20); Bilirubin,Total 0.4 mg/dl (0.2-1.0); Calcium 9.4 mg/dl (8.5-10.1); Est GFR (African American) 61.9 ml/min; Est GFR (Non-African American) 53.4 ml/min; Magnesium 2.2 mg/dl (1.7-2.4); Phosphorus 2.4 mg/dl (2.5-4.9); Potassium 3.7 mmol/L (3.5-5.1); Total Protein 6.5 gm/dl (6.0-8.3)
[2022-06-17] MEDS ORDERED: FAMOTIDINE 20 MG in SYRINGE 3 ML IV ONE (21:50)
[2022-06-17] MEDS ORDERED: INSULIN REGULAR 250 UNITS in SODIUM CHLORIDE 0.9% 247.5 ML IV SCH (22:00)
[2022-06-17] MEDS ORDERED: INSULIN HUMAN REGULAR IV BOLUS 4 UNITS in SYRINGE 0 ML IV ONE (22:00)
[2022-06-18] MEDS ORDERED: INSULIN ASPART PER UNIT SC SCH
[2022-06-18 03:54] LABS: BUN Creatinine Ratio 14.6 (10-20); Calcium 8.8 mg/dl (8.5-10.1); Creatinine Clr Calc Pharmacy 126.6 ml/min; Est GFR (African American) 87.6 ml/min; Est GFR (Non-African American) 75.6 ml/min; Magnesium 1.8 mg/dl (1.7-2.4); Phosphorus 2.2 mg/dl (2.5-4.9); Potassium 3.3 mmol/L (3.5-5.1)
[2022-06-18] MEDS ORDERED: POTASSIUM CHLORIDE CRTAB 20 MEQ TABCR PO STA ×4 (04:24→22:22)
[2022-06-18] MEDS ORDERED: POTASSIUM PHOS 3 MMOL/1 ML INFUSION IV STA ×2 (04:25)
[2022-06-18] MEDS ORDERED: POTASSIUM CHLORIDE / WTR 10 MEQ/100 ML PLCT IV SCH (04:30)
[2022-06-18] MEDS ORDERED: LACTATED RINGER'S 500 ML IV SCH (05:00)
[2022-06-18] MEDS ORDERED: POTASSIUM PHOSPHATE 15 MMOL in SODIUM CHLORIDE 0.9% 250 ML IV ONE (05:00)
--- NOTE | 2022-06-18 06:50 | Communication Note ---
Date of Service: June 18, 2022 Despite daytime and afternoon NovoLog, sugars continued to trend upwards towards 400. After discussing with pharmacy, opted to restart insulin gtt. Evening BMP with hypoK/hypoPhos and improved BUN/Cr - repletion ordered with LR @ 125cc/hr ongoing. Resident Activity Tracking Resident Involvement: Resident Care Provided Care Provided: Adult [facility] Medicine
[2022-06-18] MEDS: INSULIN ASPART PER UNIT SC SCH ×3 (08:29→16:32)
[2022-06-18] MEDS ORDERED: LANTUS PER UNIT CHARGE SQ SCH (08:30)
--- NOTE | 2022-06-18 11:13 | Hospitalist Progress Note ---
Date of Service June 18, 2022 Assessment & Plan (1) Hyperosmolar hyperglycemic state (HHS): Plan: - Patient arrived to lethargic, been vomiting and had diarrhea the past week Admission labs: - Presenting BGM >700, was 883 on BMP. - Potassium 6.7, calcium 10.5, phosphorus 7.4, magnesium 3.4. - ABG 7.25 / 23 / 110 / 10, AG 34 Patient with undiagnosed diabetes mellitus. No infective etiology found on UA, CXR. WBC normalized. Anion gap closed. Continue basal bolus insulin - discussed with pharmacy today and will increase Lantus to 40-60 units BID (previously on 60-70 units daily but this required going back on insulin drip last night) Now off insulin IV drip Hopefully is glucose levels controlled by tomorrow can discharge at that time after diabetic education and insurance sorted out. Will need to follow up with endocrinology at least initially on discharge. (2) DKA (diabetic ketoacidosis): (3) Acute kidney injury: Plan: - BUN 48, Cr 2.2, no established baseline. Cr improved 1.23 - however this was after LR IV fluids therefore suspect some rebound after this. - Severely dehydrated 2/2/ HHS/DKA on admission. BMP daily and PRN (4) Metabolic acidosis: Plan: Now resolved. 2/2 Ketosis as above (5) Acute dehydration: (6) Metabolic encephalopathy: Plan: Resolved secondary to HHS as above. B1 level pending, B12 level 490, ammonia level within normal limits. (7) Left foot pain: Plan: Suspected plantar fasciitis. Stretches discussed with patient. Continue to monitor. Plan VTE Prophylaxis - young age, low risk, early mobility recommended Diet - T2DM Disposition - continued admission to PCU Admission and Anticipated Discharge Date Admission Date: June 14, 2022 Subjective Diabetes education given. All questions answered from patient and family members at bedside. Review of Systems Review of Systems: All systems reviewed & are unremarkable except as noted in Subjective Physical Exam Constitutional: well developed and + morbidly obese; + not well nourished and no acute distress Respiratory: normal respiratory effort, lungs clear to auscultation Cardiovascular: Rate/Rhythm: regular rhythm and + tachycardic Heart Sounds: no murmur Gastrointestinal (Abdomen): normal bowel sounds, soft, nontender, no hepatosplenomegaly Skin: no rashes, warm and dry Neurologic: moves all extremities and awake; no focal motor deficits and not confused Psychiatric: Orientation: alert, oriented to person, oriented to place and oriented to time Results & Data Results & Data ([facility]) Vital Signs (Past 12 Hours) Vital Signs Temp Pulse Resp BP Pulse Ox O2 Del Method 06/18/22 09:00 105 H 18 06/18/22 08:41 104 H 19 06/18/22 08:41 123/85 06/18/22 08:00 108 H 24 95 Room Air 06/18/22 07:00 104 H 17 06/18/22 08:00 36.8 C 06/18/22 08:00 106 H 06/18/22 06:00 106 H 16 06/18/22 05:00 108 H 31 H 06/18/22 04:00 112 H 29 H 06/18/22 03:00 105 H 30 H 06/18/22 02:41 136/80 06/18/22 02:41 112 H 21 06/18/22 02:00 106 H 20 06/18/22 00:00 102 H 26 H PG Care Time/CCT Total # of Minutes Spent Total Time Spent: 70 Total Time Spent with Patient: Total time spent is greater than 50% in coordination of care (as documented) at patient's floor/unit and/or counseling patient: Coding Level of Care Code 62579 Subseq Hosp Care Lvl 3 Diagnoses Hyperosmolar hyperglycemic state (HHS) E11.00 DKA (diabetic ketoacidosis) E11.10 Acute kidney injury N17.9 Metabolic acidosis E87.2 Acute dehydration E86.0 Metabolic encephalopathy G93.41 Left foot pain M79.672
[2022-06-18 11:30] LABS: BUN Creatinine Ratio 12.7 (10-20); Calcium 9.3 mg/dl (8.5-10.1); Creatinine Clr Calc Pharmacy 115.8 ml/min; Est GFR (Non-African American) 68.2 ml/min; Potassium 3.3 mmol/L (3.5-5.1)
--- NOTE | 2022-06-18 14:05 | Pharmacy Report ---
Pharmacy Glycemic Short Note 2 - Date of Service June 18, 2022 - Glycemic Short BSG Results (Last 24 hours): 06/17/22 06/17/22 06/17/22 14:52 15:00 16:03 Glucose 378 H* POC Glucose 377 H* 367 H* 06/17/22 06/17/22 06/17/22 16:26 16:27 21:10 Glucose POC Glucose 350 H* 330 H* 396 H* 06/17/22 06/18/22 06/18/22 23:35 00:42 01:34 Glucose POC Glucose 290 H 260 H 244 H 06/18/22 06/18/22 06/18/22 02:36 03:11 03:54 Glucose 265 H POC Glucose 248 H 255 H 06/18/22 06/18/22 06/18/22 04:46 05:41 07:46 Glucose POC Glucose 236 H 196 H 159 H 06/18/22 06/18/22 06/18/22 08:46 09:52 10:40 Glucose POC Glucose 142 H 136 H 113 H 06/18/22 06/18/22 10:51 11:37 Glucose 111 H POC Glucose 104 H OUTPATIENT ANTIDIABETIC REGIMEN: * N/A * A1c 14.1% 06/14/22 ASSESSMENT: 06/18: * Patient received 70 units of basal insulin yesterday, 101 units of correctional - plus continues on insulin drip this morning at 15 units/hr. Drip had been restarted last evening as BSGs were starting to climb quickly despite extra SQ doses and IV bolus dose. * Discussed with provider this morning, patient needing closer to ~250 units of insulin - will double Lantus dose this AM to help with drip transition. I may have scale on for bedtime to target 40-60 units of Lantus based upon BSG. Will target basal ~100-120 units per day. * Gave 60 units of basal this AM, drip held at lunch time - will trial off drip and see how BSGs trend 06/16: * BSGs within goal on insulin infusion, average rate ~ 10 unit/hr. Pt received 50 units of Lantus last evening (~wt/stress 3, 0.6unit/kg/day). Insulin infusion discontinued this AM after pt ate breakfast. Dextrose containing IVF also discontinued. * Novolog 15/5 initiated with breakfast and overnight checks added. Lantus 50 units again tonight and will reassess basal tomorrow. 06/15: * Patient is a 37 yo male with unknown past medical history, A1c of 14.1%, no known home medication * Presented with altered mental status d/t HHS, admission BSG 883, current corrected sodium ~152, calculated serum osmol ~328, on D5+20 meq of Kcl @ 200 ml/hr * Goal range 250-350 mg/dL, will maintain insulin infusion until mental status improves/hyperosmolarity improves PLAN FOR INPATIENT GLYCEMIC CONTROL: * Basal: * Lantus 60 units Qam * Lantus 40-60 units Qpm * Bolus: * Novolog ACHS: correction 12 mg/dL/unit (goal 110-140mg/dL), carb ratio= 3 gm/unit
[2022-06-18 17:34] LABS: BUN Creatinine Ratio 12.2 (10-20); Calcium 9.3 mg/dl (8.5-10.1); Creatinine Clr Calc Pharmacy 111.6 ml/min; Est GFR (African American) 75.6 ml/min; Est GFR (Non-African American) 65.2 ml/min; Potassium 3.7 mmol/L (3.5-5.1)
[2022-06-18] MEDS: LANTUS PER UNIT CHARGE SQ SCH (21:54)
[2022-06-19] MEDS ORDERED: FAMOTIDINE 20 MG in SYRINGE 3 ML IV ONE (00:05)
[2022-06-19] MEDS: INSULIN ASPART PER UNIT SC SCH ×7 (00:15→12:39)
[2022-06-19 06:13] LABS: BUN Creatinine Ratio 11.9 (10-20); Calcium 9.1 mg/dl (8.5-10.1); Creatinine Clr Calc Pharmacy 123.1 ml/min; Est GFR (African American) 85.1 ml/min; Est GFR (Non-African American) 73.4 ml/min; Magnesium 1.7 mg/dl (1.7-2.4); Phosphorus 3.2 mg/dl (2.5-4.9); Potassium 3.7 mmol/L (3.5-5.1)
[2022-06-19] MEDS ORDERED: POTASSIUM CHLORIDE CRTAB 20 MEQ TABCR PO STA (07:42)
[2022-06-19] MEDS: LANTUS PER UNIT CHARGE SQ SCH (08:23)
--- NOTE | 2022-06-19 10:52 | Pharmacy Report ---
Pharmacy Glycemic Short Note 2 - Date of Service June 19, 2022 - Glycemic Short BSG Results (Last 24 hours): 06/18/22 06/18/22 06/18/22 10:51 11:37 14:42 Glucose 111 H POC Glucose 104 H 161 H 06/18/22 06/18/22 06/18/22 15:15 16:17 16:53 Glucose 219 H POC Glucose 166 H 175 H 06/18/22 06/19/22 06/19/22 21:26 00:29 04:13 Glucose POC Glucose 310 H* 289 H 179 H 06/19/22 06/19/22 05:27 07:27 Glucose 192 H POC Glucose 182 H OUTPATIENT ANTIDIABETIC REGIMEN: * N/A * A1c 14.1% 06/14/22 ASSESSMENT: 06/19: * 244 units SQ insulin given over last 24 hrs while tolerating diet. * Fasting BSG 182 this AM with 120 units basal on board AND after receipt of 59 units correctional insulin overnight. Will continue with scaled basal insulin for now given uncertain basal insulin requirements, but do anticipate he will need ~>100 units basal insulin per day as we approach steady-state based upon available data. * Post-prandial BSGs climbed as the day progressed yesterday; giving high daily insulin needs, will increase CF/CR doses 06/18: * Patient received 70 units of basal insulin yesterday, 101 units of correctional - plus continues on insulin drip this morning at 15 units/hr. Drip had been restarted last evening as BSGs were starting to climb quickly despite extra SQ doses and IV bolus dose. * Discussed with provider this morning, patient needing closer to ~250 units of insulin - will double Lantus dose this AM to help with drip transition. I may have scale on for bedtime to target 40-60 units of Lantus based upon BSG. Will target basal ~100-120 units per day. * Gave 60 units of basal this AM, drip held at lunch time - will trial off drip and see how BSGs trend 06/16: * BSGs within goal on insulin infusion, average rate ~ 10 unit/hr. Pt received 50 units of Lantus last evening (~wt/stress 3, 0.6unit/kg/day). Insulin infusion discontinued this AM after pt ate breakfast. Dextrose containing IVF also discontinued. * Novolog 12/02 initiated with breakfast and overnight checks added. Lantus 50 units again tonight and will reassess basal tomorrow. 06/15: * Patient is a 37 yo male with unknown past medical history, A1c of 14.1%, no known home medication * Presented with altered mental status d/t [facility], admission BSG 883, current corrected sodium ~152, calculated serum osmol ~328, on D5+20 meq of Kcl @ 200 ml/hr * Goal range 250-350 mg/dL, will maintain insulin infusion until mental status improves/hyperosmolarity improves PLAN FOR INPATIENT GLYCEMIC CONTROL: * Basal: * Lantus SQ BID per scale: 40 units if BSG less than 150, 50 units if BSG 150-200, 60 units if BSG greater than 200 * Bolus: * Novolog ACHS: correction 10 mg/dL/unit (goal 110-140mg/dL), carb ratio= 2.5 gm/unit
--- NOTE | 2022-06-19 13:48 | Discharge Summary ---
Date of Service June 19, 2022 Admission HPI Per Admitting Provider Juan José Lockhart is a 37-year-old male with unknown past medical history who is presented to the ED today with his friend. 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 Patient has been very lethargic for the past week and just lying around. He apparently has been vomiting this week and had some diarrhea. His friend notes that he has been eating significantly more in the last 2 weeks and has gained a large amount of weight in a short amount of time. He is normally healthy and active, does not have any known medical conditions, but does not see a doctor regularly. On presentation to ED, he is tachycardic with HR in 120s, otherwise all vital signs within normal limits and stable. ABG 7.25/23/110/10, AG 34. K 6.7, Ca 10.5, Phos 7.4, Mag 3.4 BUN 48, Cr 2.92 ED Course: 2L NSS bolus, Normosol @ 500cc/hr, insulin gtt with 10 units bolus insulin. Principal Diagnosis Hyperosmolar hyperglycemic syndrome Diabetic ketoacidosis Suspected type 2 diabetes mellitus Acute kidney failure (resolved) Discharge Exam Constitutional well developed and + morbidly obese; + not well nourished and no acute distress Respiratory normal respiratory effort, lungs clear to auscultation Cardiovascular Rate/Rhythm: regular rhythm and + tachycardic Heart Sounds: no murmur Extremities: normal capillary refill and + pedal edema (trace pitting b/l); no calf tenderness Gastrointestinal (Abdomen) normal bowel sounds, soft, nontender, no hepatosplenomegaly Musculoskeletal no cyanosis or clubbing, extremities motor strength 5/5 Skin no rashes, warm and dry Neurologic moves all extremities and awake; no focal motor deficits and not confused Psychiatric Orientation: alert, oriented to person, oriented to place and oriented to time Genitourinary no CVA tenderness Discharge Data Allergies Allergy/AdvReac Type Severity Reaction Status Date / Time No Known Allergies Allergy Unverified 02/20/15 13:20 Consultations 06/14/22 15:02 ED Decision to Admit Stat Hospital Course (1) Hyperosmolar hyperglycemic state (HHS): Juan José Lockhart is a 37 year old male admitted to [facility] from June 14 - 2021 due to altered mental state. He was not previously known ot have diabetes as he does not regularly see a doctor and has no health insurance. He was diagnosed with hyperosmolar hyperglycemia syndrome and diabetic ketoacidosis. This was appropriately treated with intravenous fluids, electrolyte replacement and intravenous insulin. His mentation improved back to baseline over the first 48 hours. He has now been converted to subcutaneous insulin for him to continue on discharge. HbA1C 14.1. He was given a coupon for Lantus and Admelog however this is only for a month and will likely need to be switch pending his insurance coverage which he is now applying for. Antibody testing was deferred pending endocrinology follow up appointment. He was also started on metformin to help with insulin resistance. 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 Our diabetes nurse educator will continue to contact him until his primary care follow up appointment for ongoing education and insulin adjustments. On discharge he will be started on Lantus 50 units twice a day and Admelog with carb ratio 1 unit insulin for every 3 grams of carbs and correction of 1 units for every 10 g/dL glucose > 150. However suspect this will need uptitrating as an outpatient. He was also noted to have a lot of daytime sleepiness and snoring even despite treatment for his diabetes. Given his neck size would recommend obstructive slepp apnea testing as an outpatient as this may be contributing towards his weight and tiredness. Given initial altered mental state a B1 level was taken which is still outstanding on discharge. Please follow this up as an outpatient. (2) DKA (diabetic ketoacidosis): (3) Acute kidney injury: (4) Metabolic acidosis: (5) Acute dehydration: (6) Metabolic encephalopathy: (7) Left foot pain: Total Time Total Time Spent Total Time Spent (In Minutes): 60 Discharge Plan Discharge Items Patient Disposition: Home - Self-Care Reason For Visit: DKA Discharge Diagnosis: Hyperosmolar hyperglycemic syndrome Diabetic ketoacidosis Suspected type 2 diabetes mellitus Acute kidney failure (resolved) Activity: Resume your previous activity Non-emergency contact: Primary Care Provider Call non-emergency contact if: you have any medication questions and your symptoms worsen Follow-up/Referrals: Armando Torre DO [Primary Care Provider] - 07/10/22 9:45 am Diet: Carb Consistent or DM2 Addtl Attending Provider Instructions: You were admitted to [facility] from June 14 - 2021 due to altered mental state. You were diagnosed with hyperosmolar hyperglycemia syndrome and diabetic ketoacidosis which is a life threatening condition of untreated diabetes. You were treated with electrolyte replacement intravenous fluids and insulin. You have now been converted to subcutaneous insulin and should continue this on discharge. Please start metformin as this can help reduce insulin resistance. Take only one pill daily for the first week then twice a day after this. This may be uptitrated by your primary care provider. 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 Please keep in touch with our wellness educator nurse until your follow up with your primary care provider. You will be started on Lantus (long acting insulin) 50 units twice a day and Admelog (short acting insulin) with carb ratio 1 unit insulin for every 3 grams of carbs and correction of 1 units for every 10 g/dL glucose > 150. Please call your primary care provider or diabetes nurse if you are having glucose levels > 400 at home. Please follow up with your primary care provider for ongoing diabetes management and blood pressure management. Also recommend outpatient sleep study for obstr uctive sleep apnea as this may also be contributing towards your day time sleepiness. Pending Studies at Discharge: Yes (B1 level) Stand-Alone Forms: [facility], Smoking Cessation Medications and DC Order Prescriptions: New insulin glargine [Lantus Solostar U-100 Insulin] 100 unit/mL (3 mL) insulin pen 50 unit subcut BID Qty: 30 0RF insulin lispro [Admelog SoloStar U-100 Insulin] 100 unit/mL insulin pen See Rx Instructions .ROUTE .COMPLEX Qty: 30 0RF Rx Instructions: Carb count: 1 unit insulin for every 3g carbs Correction Factor: give 1 unit insulin for every 10 g/dl glucose > 150 metformin 500 mg tablet extended release 24 hr 500 mg PO BID Qty: 60 0RF Rx Instructions: take 1 tablet daily for the first 7 days then 1 tab twice a day as long as no diarrhea Discharge Orders: Discharge Order (Routine); Ordered 06/19/22 Ordered By: Theo Hernandez Admission Data Admit Date/Time: 06/14/22 15:31 Attending Provider: Theo Hernandez Admit Provider: Ned Elena Primary Care Provider: Armando Torre Other Providers: Ned Elena Other Interventions: Discharge Summary Assessment (RN) Last Done: 06/19/22 15:00 Coding Level of Care Code D/C DAY MANAGEMENT >30 MINS Diagnoses Hyperosmolar hyperglycemic state (HHS) E11.00 DKA (diabetic ketoacidosis) E11.10 Acute kidney injury N17.9 Metabolic acidosis E87.2 Acute dehydration E86.0 Metabolic encephalopathy G93.41 Left foot pain M79.672
[2022-06-20] MEDS ORDERED: INSULIN ASPART PER UNIT SC ONE (02:00)
== END 2022-06-19 15:48 | disposition home or self-care (01) | DRG 637 ==
LOC: ED 13:24 → SUATTDRO 15:31 → EDINP 15:31 → 1E 18:01